=== PATIENT | male | born 1945 | race Caucasian/White ===

== ENCOUNTER 2018-08-28 00:27 | Inpatient (IN) | payer MEDICARE, OTHER ==
--- NOTE | 2018-08-27 12:48 | LEVENE H&P ---
DATE OF ADMISSION: August 28, 2018 IDENTIFICATION/CHIEF COMPLAINT The patient is a 72-year-old gentleman with a chief complaint of left hip pain. HISTORY OF PRESENT ILLNESS The patient has a long-standing history of hip arthritis, progressively painful and debilitating, refractory to conservative care. Surgery is indicated to relieve symptoms after failure of nonoperative measures. PAST MEDICAL HISTORY 1. Hypertension. 2. Easy bruising. 3. Sleep apnea. 4. History of kidney cancer status post right nephrectomy. 5. Diabetes. PAST SURGICAL HISTORY 1. Nephrectomy. 2. Knee replacement on both sides. 3. Some intestinal resection. ALLERGIES No known drug allergies. CURRENT MEDICATIONS 1. Amlodipine 1 p.o. q. day. 2. Crestor 1 p.o. q. day. 3. Allopurinol 300 mg p.o. q. day. 4. Actos 1 p.o. q. day. 5. Aspirin 81 mg p.o. q day. 6. Symbicort once a day as needed for nasal drainage. 7. He uses a CPAP. FAMILY HISTORY Non-contributory. SOCIAL HISTORY Negative for tobacco and alcohol use. REVIEW OF SYSTEMS Negative. PHYSICAL EXAMINATION GENERAL: This is a well-developed, well-nourished male who appears stated age. HEENT: Normocephalic, atraumatic. Extraocular muscles intact. NECK: Supple, non-tender. LUNGS: Clear to auscultation bilaterally. HEART: Regular rate and rhythm. ABDOMEN: Benign. ORTHOPEDIC EXAMINATION Left hip has pain with combine flexion and rotation. He is quite stiff and has loss of internal rotation versus contralateral. Skin is intact. Hip girdle strength is grossly normal. Calf is nontender. Neurovascular intact. RADIOGRAPHS Demonstrate end-stage hip arthritis ASSESSMENT Left hip end-stage degenerative joint disease refractory to conservative care. PLAN Per patient's request, we will proceed with total hip arthroplasty. The nature of the procedure, the risks, benefits, the anticipated rehabilitative course were reviewed. Risks include but are not limited to , major medical or anesthetic complication, infection, neurovascular injury, blood transfusions, stiffness, scarring, fracture, tendon rupture, instability, implant loosening, migration or failure, persistent or recurrent pain or symptoms, need for additional surgery and other unforeseen. He understands and wishes to proceed. All questions are answered. A signed permit is placed in the chart. No guarantees are given or implied. [facility]
--- NOTE | 2018-08-27 15:43 | NUR ---
This Physical Therapist or Avian Keeper was present for the entire physical therapy session directing the services, making the skilled judgement, and was not engaged in treating another patient or doing another task at the same time as the treatment session. Addendum: 08/27/18 at 1544 by BIN IVY PT Amended: Links added.
[2018-08-27 15:47] LABS: INR 1.1
[~2018-08-28] VITALS: Ht 177.8 cm; Wt 129.7 kg
[2018-08-28] VITALS (14 sets, daily range): BP systolic 92–118; BP diastolic 44–92
[~2018-08-28 00:27] MED LIST: ALLO-119 PO; AMLO-106 PO; ASCO-191 PO; ASPI81TA94 PO; CYAN1TAB68 PO; GEMF600T96 PO; GLUC1TAB66 PO; MONT10TA PO; MULT1TAB88 PO; PIOG30TA71 PO; ROSU20TA24 PO
[2018-08-28] MEDS ORDERED: LIDOCAINE/SOD BICARB 8.4% SYR ID ONE (06:15)
[2018-08-28] MEDS ORDERED: FAMOTIDINE 20 MG TAB PO ONE (06:15)
[2018-08-28] MEDS ORDERED: MIDAZOLAM 2 MG/2 ML VIAL IVP PRN (06:15)
[2018-08-28] MEDS ORDERED: ROPIVACAINE/EPI/CLONIDINE/KET 50 ML SYRINGE INJ ONE (06:15)
[2018-08-28] MEDS ORDERED: ACETAMINOPHEN 500 MG TAB PO ONE (06:15)
[2018-08-28] MEDS ORDERED: CELECOXIB 200 MG CAP PO ONE (06:15)
[2018-08-28] MEDS ORDERED: NORMOSOL R SOLN(*) 1000 ML BAG 1,000 ML IV PRN ×2 (06:15→12:20)
[2018-08-28] MEDS ORDERED: PREGABALIN 75 MG CAPSULE PO ONE (06:15)
[2018-08-28] MEDS ORDERED: ceFAZolin(*) 2GM/D5W 50ML 50 ML IVPB ONE (06:15)
[2018-08-28] MEDS ORDERED: TRANEXAMIC AC 1000 MG/10ML SDV 1,000 MG in DEXTROSE 5% 50 ML BAG 50 ML IV ONE (06:15)
[2018-08-28] MEDS ORDERED: VANCOMYCIN 1 GM VIAL ONE (06:49)
[2018-08-28] MEDS ORDERED: ONDANSETRON 4 MG/2 ML VIAL ONE (06:50)
[2018-08-28] MEDS ORDERED: LIDOCAINE MPF 1% 5 ML VIAL ONE (06:50)
[2018-08-28] MEDS ORDERED: DEXAMETHASONE SOD 4 MG/ML VIAL ONE (06:50)
[2018-08-28] MEDS ORDERED: fentaNYL CITR 100 MCG/2 ML AMP ONE ×2 (06:50→10:03)
[2018-08-28] MEDS ORDERED: PROPOFOL EMUL(*) 10MG/ML 20 ML 20 ML ONE (06:50)
[2018-08-28] MEDS ORDERED: KETAMINE HCL-NS 50 MG/5 ML SYR ONE (06:52)
[2018-08-28] MEDS ORDERED: ePHEDrine 25 MG/5 ML DISP.SYR IVP ONE (07:20)
[2018-08-28] MEDS ORDERED: GLYCOPYRROLATE 0.2MG/ML 1 ML INJ ONE (07:20)
[2018-08-28] MEDS ORDERED: LACTATED RINGER 3000 ML BAG IR ONE (07:58)
[2018-08-28] MEDS ORDERED: WATER STERILE FOR IRRIG 1000ML IR ONE (07:59)
[2018-08-28] MEDS ORDERED: NS 0.9% IRRIGATION 1000ML PLCT IR ONE (07:59)
--- NOTE | 2018-08-28 11:34 | Hospitalist Consultation ---
History of Present Illness Requesting Physician Dr. Chatman Reason for Consult Medical Management of comorbidities Chief Complaint s/p left hip replacement History of Present Illness He was admitted s/p left hip replacement. It is reported he had an episode of bradycardia during surgery, which required medication to increase his heart rate. His heart rate has been 60-70 post-operatively and he denies any complaint s now. History Problems: (1) Hypertension Status: Chronic (2) DALLIN (obstructive sleep apnea) Status: Chronic (3) Type 2 diabetes mellitus Status: Chronic (4) Gout Status: Chronic Home Meds Reported Medications Cyanocobalamin/Folic Acid (VITAMIN U59-SNSKM ACID TABLET) 1 Each Tablet, 1 EACH PO QDAY 08/21/18 Multivits-Minerals/Fa/Lycopene (ONE DAILY [employer] TABLET) 1 Each Tablet, 1 TAB PO QDAY 08/21/18 Ascorbic Acid (VITAMIN C) 1,000 Mg Tablet, 1000 MG PO QDAY 08/21/18 Glucosam/Chond/Hyalu/Cf Borate ([employer] Tablet) 750 Mg-100 Mg- 1.65 Mg-108 Mg Tablet, 1500 MG PO QDAY 08/21/18 Aspirin (ASPIRIN) 81 Mg Tab.chew, 81 MG PO QDAY, TAB.CHEW 08/21/18 Montelukast Sodium (SINGULAIR) 10 Mg Tablet, 1 TAB PO QDAY, TAB 08/21/18 Allopurinol (ZYLOPRIM) 300 Mg Tablet, 300 MG PO BID, TAB 08/21/18 Gemfibrozil (GEMFIBROZIL) 600 Mg Tablet, 600 MG PO BID 08/21/18 Amlodipine Besylate/Benazepril (LOTREL 10-40 MG CAPSULE) 1 Each Capsule, 1 EACH PO QDAY, CAPSULE 08/21/18 Pioglitazone Hcl (PIOGLITAZONE HCL) 30 Mg Tablet, 30 MG PO QDAY 08/21/18 Rosuvastatin Calcium (CRESTOR) 20 Mg Tablet, 20 MG PO QDAY 08/21/18 Allergies: Coded Allergies: No Known Drug Allergies (Unverified , 08/21/18) Patient History: FH: colon cancer FATHER FH: stroke FATHER MOTHER Hx Smoking: No Caffeine Intake: Coffee, Soda Caffeine/Cups Per Day: 3-4 CUPS PER DAY Hx Alcohol Use: Yes Hx Substance Use Disorder: No Review of Systems All Systems Reviewed/Normal: Yes, Except as Noted Exam Vital Signs Vital Signs Date Time Temp Pulse Resp B/P (MAP) Pulse Ox O2 Delivery O2 Flow Rate FiO2 08/28/18 10:50 64 16 94 08/28/18 10:50 Nasal Cannula 2.0 08/28/18 10:50 97.0 115/60 (78) General Appearance: Alert, Awake, No Acute Distress, Afebrile Neuro: No Gross deficits Cardiovascular: Regular Rate and Rhythm Respiratory: No Respiratory Distress, Clear to Auscultation GI: Abd Soft and Non-Tender Psych: Alert & Oriented X3, Appropriate Mood & Affect Assessment and Plan Problems: (1) Status post left hip replacement Status: Acute Assessment & Plan: Followed by Dr. Chatman. (2) Hypertension Status: Chronic Assessment & Plan: He is on chronic treatment with Lotrel. He will be started on Amlodipine with hold parameters. (3) Type 2 diabetes mellitus Status: Chronic Assessment & Plan: Continue chronic Pioglitazone. Will place ADA diet, SS insulin #2 and AC/HS blood glucose checks. (4) Gout Status: Chronic Assessment & Plan: Continue chronic allopurinol. (5) DALLIN (obstructive sleep apnea) Status: Chronic Assessment & Plan: He did bring his CPAP to use during admission. Venous Thromboembolism Antithrombotics Is Pt On Any Antithrombotics?: No Problem Qualifiers (1) Hypertension: Hypertension type: essential hypertension Qualified Codes: I10 - Essential (primary) hypertension JANE BOLIVAR [employer] [employer] Aug 28, 2018 11:34
--- NOTE | 2018-08-28 11:41 | RADIOLOGY IMAGING REPORT ---
FACILITY: [facility] [place] PATIENT NAME: Melvin Turk : 1945 MR: [id number] V: [id number] EXAM DATE: ORDERING PHYSICIAN: RAVIN ANTOINE TECHNOLOGIST: [facility] Patient: Melvin Turk : 1945 Visit/Account:[id number] Date of Sevice: 08/28/2018 Study: PELVIS Indication: Status post total hip arthroplasty. Comparison study: January 20, 2016 Findings: AP views of the left hip demonstrates a the patient is status post total left hip arthropla sty. There are postsurgical changes present. The appearance of the metallic portions of the hip pro sthesis is unremarkable. There is no evidence of acute bony abnormality identified. IMPRESSION: Status post left total hip arthroplasty. There is no evidence of acute bony abnormality. Report Dictated By: Pee Laughlin at 08/28/2018 11:33 AM Report E-Signed By: Pee Laughlin at 08/28/2018 11:35 AM WSN:[id number]
--- NOTE | 2018-08-28 12:08 | NUR ---
This Physical Therapist or Registered Account Administrator was present for the entire physical therapy session directing the services, making the skilled judgement, and was not engaged in treating another patient or doing another task at the same time as the treatment session. Addendum: 08/28/18 at 1334 by RITCHIE PEREZ PT Amended: Links added.
--- NOTE | 2018-08-28 12:08 | NUR ---
Physical Therapy Impression PT eval complete. Pt tolerated ambulation well and requested to ambulate despite complaints of pain at 6-7/10. Pt also followed precautions throughout session. PT required Min assist for supine<>sit bed mobility and CGAx1/RW for sit<>stand xfers. Pt ambulated 25 ft from EOB to doorway and back. Pt required CGAx1 and RW for ambulation. Following treatment BP had raised slightly to 107/59 but still asymptomatic. Pt left in bed on room air and call light in reach. Pt would benefit from further skilled PT care to ensure safe ambulation and educate on safe stair negotiation. Rec OP PT at discharge. Physical Therapy Goals 1. Tracie bed mobility 2. Tracie transfers 3. Tracie ambulation of 150 ft with use of least restrictive device 4. Tracie ability to ascend/descend 5 stairs 5. Independent following of all hip precautions. Patient's Goals
[2018-08-28] MEDS ORDERED: DIAZEPAM 5 MG TAB PO PRN (12:20)
[2018-08-28] MEDS ORDERED: PROMETHAZINE 25 MG/ML 1 ML AMP IVP PRN (12:20)
[2018-08-28] MEDS ORDERED: diphenhydrAMINE 25 MG CAP PO PRN (12:20)
[2018-08-28] MEDS ORDERED: BENZOCAINE/MENTHOL 1 EACH LOZG PO PRN (12:20)
[2018-08-28] MEDS ORDERED: diphenhydrAMINE 50 MG/ML VIAL IVP PRN (12:20)
[2018-08-28] MEDS ORDERED: ZOLPIDEM TARTRATE 5 MG TAB PO PRN (12:20)
[2018-08-28] MEDS ORDERED: ACETAMINOPHEN 325 MG TAB PO PRN (12:20)
[2018-08-28] MEDS ORDERED: FLUSH 10 ML SYR IVP PRN (12:20)
[2018-08-28] MEDS ORDERED: MAGNESIUM HYDROXIDE* 30ML UDCP PO PRN (12:20)
[2018-08-28] MEDS ORDERED: BISACODYL 10 MG SUPP PR PRN (12:20)
[2018-08-28] MEDS: APAP/HYDROCODONE 325/7.5 TAB PO PRN ×3 (12:24→23:18)
[2018-08-28] MEDS ORDERED: NS(*) 0.9% 500 ML BAG 500 ML ONE (15:13)
[2018-08-28] MEDS: ceFAZolin(*) 1 GM VIAL 1 GM in NS(*) 0.9% 100 ML MINI-BAG 100 ML IVPB SCH ×2 (15:19→23:16)
[2018-08-28] MEDS: CELECOXIB 200 MG CAP PO SCH (16:19)
[2018-08-28] MEDS: INSULIN HUM LISPRO 100 UN/ML 3 ML VIAL SUBQ PRN ×2 (17:07→21:03)
--- NOTE | 2018-08-28 19:32 | OPERATIVE REPORT 1 ---
EVENT DATE: August 28, 2018 SURGEON: Cristian Chatman MD ANESTHESIOLOGIST: Nino Freitas MD ANESTHESIA: General plus spinal. LEAD SQL DEVELOPER: IRAJ Todd PREOPERATIVE DIAGNOSIS Left hip degenerative joint disease. POSTOPERATIVE DIAGNOSIS Left hip degenerative joint disease. PROCEDURE PERFORMED Left total hip arthroplasty. ESTIMATED BLOOD LOSS 400 mL. DRAINS None. SPECIMENS None. COMPLICATIONS None apparent. IMPLANTS USED Pedro system with a Trident PSL GARZA cluster acetabulum shell 56, zero-degree polyethylene Trident X3 liner to accommodate a 36 mm head. He has Accolade II 132-degree neck angle hip stem size 9 with a V40 LFIT anatomic femoral head, a 36 mm, +10. INDICATIONS Melvin is a 73-year-old gentleman with intractable pain related to left hip end-stage arthritis. Surgery is indicated to relieve symptoms after failure of nonoperative measures. DESCRIPTION OF PROCEDURE Patient is taken to the operating room and placed supine on the operating table. Spinal block is administered by the anesthesiologist. General anesthesia is induced. Antibiotics and TXA are administered IV. Patient is positioned in the right lateral decubitus on a well-padded pegboard. His pelvis is secured in a vertical position. All bony prominences and superficial nerves are well padded. The left hip girdle and lower extremity are prepped and draped free in the usual sterile fashion for hip arthroplasty. A posterolateral approach is made, carried down through the skin and subcutaneous tissue to the deep fascia. Fascia is incised over the tip of the trochanter, extended distally in line with the femur and proximally in line with the shayan fibers. Shayan fibers are split bluntly. The interval between the external rotators and abductors is identified, and the abductor mechanism is protected with a blunt Hohmann. A capsulotomy/tenotomy is performed with an L-shaped flap, starting with the horizontal limb above the piriformis, through the capsule, and dissecting the capsule and external rotators off the back of the femur. These are tagged with #2 Vicryl for later anatomic reattachment. A 1.5 cm neck cut is marked, and the appropriate cut is made with an oscillating saw. The femoral head is extracted. The femur is translocated anteriorly, and lynn-acetabular retractors are placed with the tips down on bone. The pulvinar and labrum are excised. A 44 mm reamer is used to medialize through the true medial wall of the acetabulum. This is expanded in 2 mm increments up to 56 where nice rim contact is obtained. Trial 56 has nice fit. A 57 is used to open the throat of the acetabulum to accommodate the raised rim liner. Surfaces are lavaged. The actual shell is impacted in approximately 40 degrees of lateral opening and 20 degrees of anteversion using the transverse acetabular ligament, extracorporeal guide, and internal bony landmarks to guide socket placement. Rock-solid fixation is achieved. No adjuvant fixation felt to be needed. Shell is lavaged, and the actual liner is locked into the shell. Attention is turned to femoral preparation. The superior neck is resected with a [email or web address] cutter. A Charey awl finds the canal. Tapered broaching is performed up to 9 where nice fit, fill, and stability are achievable. Trial reduction is performed off this broach. Good lutheran of soft tissue tension and stability are achievable with the longer neck lengths. The broach is extracted. Surfaces are copiously lavaged. The actual stem is then seated and seats at roughly the same height. Trial reduction with various neck lengths is performed. The +10 is required to achieve adequate soft tissue tension to prevent instability due to a fairly stiff spine. This does lengthen the patient's limb an estimated 1/4 to 1/2 inch, but it is felt to be a good trade off rather than compromising stability. The wound is copiously lavaged, and the Olmedo taper is dried. The actual head is impacted onto the Olmedo taper. Joint is reduced. Drill holes are created in the posterior femur to reattach the capsule and external rotators, followed by deep fascial closure with #2 Ethibond distally and #2 Vicryl proximally. Subcutaneous tissue is lavaged. Hemostasis is assured. Derm is closed with 3-0 Vicryl and skin with Prineo/Monocryl combination. A dry, sterile dressing and a hip wrap are applied. Patient is awakened from anesthesia and taken to the recovery room in stable condition having tolerated the procedure well. PLAN Standard PRAMOD rehab protocol. Weightbearing as tolerated. Posterior hip precautions. MTDD
[2018-08-28] MEDS: GEMFIBROZIL 600 MG TAB PO SCH (21:03)
[2018-08-29 04:31] VITALS: BP 94/63
[2018-08-29] MEDS: ceFAZolin(*) 1 GM VIAL 1 GM in NS(*) 0.9% 100 ML MINI-BAG 100 ML IVPB SCH (06:22)
[2018-08-29 07:01] VITALS: BP 95/55
[2018-08-29] MEDS ORDERED: ASPI-757 PO (08:06)
[2018-08-29 08:40] VITALS: Ht 177.8 cm; Wt 129.7 kg
[2018-08-29] MEDS: CELECOXIB 200 MG CAP PO SCH (08:53)
[2018-08-29] MEDS: GEMFIBROZIL 600 MG TAB PO SCH (08:53)
[2018-08-29] MEDS ORDERED: ASPIRIN 325 MG TAB PO SCH (09:00)
[2018-08-29] MEDS ORDERED: amLODIPine BESYL(*) 5 MG TAB PO SCH (09:00)
[2018-08-29] MEDS ORDERED: PIOGLITAZONE HCL 15 MG TAB PO SCH (09:00)
[2018-08-29] MEDS ORDERED: ROSUVASTATIN CALCIUM 10 MG TAB PO SCH (09:00)
[2018-08-29] MEDS ORDERED: MONTELUKAST SODIUM 10 MG TAB PO SCH (09:00)
[2018-08-29] MEDS: APAP/HYDROCODONE 325/7.5 TAB PO PRN (09:07)
[2018-08-29 10:18] VITALS: BP 100/57
--- NOTE | 2018-08-29 10:31 | Hospitalist Progress Note ---
Subjective Progress Notes Subjective He was admitted s/p hip replacement. He had no acute events overnight. His heart rate maintained in the 50's overnight. He is asymptomatic. Patient Complains of: Cardiovascular: No: Chest Pain Respiratory: No: Shortness of Breath Physical Exam Vital Signs Date Time Temp Pulse Resp B/P (MAP) Pulse Ox O2 Delivery O2 Flow Rate FiO2 08/29/18 10:18 97.7 57 20 100/57 (71) 91 Nasal Cannula 1.0 Intake and Output 08/29/18 07:01 Intake Total 2060 ml Balance 2060 ml Intake Oral 310 ml IV Total 1750 ml # Voids 2 General Appearance: Alert, Awake, No Acute Distress, Afebrile Neuro: No Gross deficits Cardiovascular: Other (bradycardia noted) Respiratory: No Respiratory Distress, Clear to Auscultation Psych: Alert & Oriented X3, Appropriate Mood & Affect Assessment and Plan Problems: (1) Status post left hip replacement Status: Acute Assessment & Plan: Followed by Dr. Chatman. He was placed on Aspirin for DVT prophylaxis. (2) Hypertension Status: Chronic Assessment & Plan: He is on chronic treatment with Lotrel. He will be started on Amlodipine with hold parameters. He will hold his medications at home for three days, then resume. If he feels dizzy, he will follow up with his PCP immediately. (3) Type 2 diabetes mellitus Status: Chronic Assessment & Plan: Continue chronic Pioglitazone. Will place ADA diet, SS insulin #2 and AC/HS blood glucose checks. (4) Gout Status: Chronic Assessment & Plan: Continue chronic allopurinol. (5) DALLIN (obstructive sleep apnea) Status: Chronic Assessment & Plan: He did bring his CPAP to use during admission. Exam Sepsis Risk: No Definite Risk Problem Qualifiers (1) Hypertension: Hypertension type: essential hypertension Qualified Codes: I10 - Essential (primary) hypertension JANE BOLIVAR [facility] Aug 29, 2018 10:31
--- NOTE | 2018-08-29 13:31 | NUR ---
This Physical Therapist or Engineering Agent was present for the entire physical therapy session directing the services, making the skilled judgement, and was not engaged in treating another patient or doing another task at the same time as the treatment session. Addendum: 08/29/18 at 1331 by BIN IVY PT Amended: Links added.
--- NOTE | 2018-08-29 13:31 | NUR ---
Physical Therapy Impression Pt tolerating ambulation well and demonstrated safe stair negotiation. Pt could not recall hip precautions, but adhered to them throughout session. Pt performed sit<>supine bed mobility with SBA. Pt maintained hip precautions throughout. Pt performed sit<>stand xfers while using axillary crutches. SBA provided to ensure precautions maintained and to ensure safety with first time utilizing the crutches. Pt ambulated 215 ft with use of axillary crutches and SBA. Pt tolerated ambulation well, reporting preferance of axillary crutches over the RW. He reported pain of a 4/10 during ambulation. SpO2 maintained >90%, and HR at 55. Pt asymptomatic of low HR and it was near baseline. Pt ascended/descended 1 stair with SBA and use of left railing/crutches. Cues provided on foot sequencing and AD use, Pt states understanding. Therex not performed but therex handout reviewed, Pt states understanding.Pt left in bed with all needs met and call light in reach. Pt near all PT goals and safe to discharge when medically appropriate. Rec OP PT at [facility]. Physical Therapy Goals 1. Tracie bed mobility 2. Tracie transfers 3. Tracie ambulation of 150 ft with use of least restrictive device 4. Tracie ability to ascend/descend 5 stairs 5. Independent following of all hip precautions. Patient's Goals
== END 2018-08-29 12:11 | disposition home or self-care (01) | DRG 470 ==
LOC: OR 00:27 → MED 10:50
PROVIDERS: ADMIT Orthopaedic Surgery; ATTEND Orthopaedic Surgery
PROC: 0SRB04A Replacement of Left Hip Joint with Ceramic on Polyethylene Synthetic Substitute, Uncemented, Open Approach (ICD-10-PCS; principal; 2018-08-28 07:06)
DX: M16.12 Unilateral primary osteoarthritis, left hip (principal); I10 Essential (primary) hypertension; E11.9 Type 2 diabetes mellitus without complications; R00.1 Bradycardia, unspecified; G47.33 Obstructive sleep apnea (adult) (pediatric); M10.9 Gout, unspecified; Z85.528 Personal history of other malignant neoplasm of kidney; Z90.5 Acquired absence of kidney; Z79.82 Long term (current) use of aspirin; Z79.51 Long term (current) use of inhaled steroids; Z79.899 Other long term (current) drug therapy; Z99.89 Dependence on other enabling machines and devices
CPT/HCPCS: 36415; 36416; 72170; 82948; 85610; 86850; 86900; 86901; 97165; C1776; J0690; J1100; J2001; J2250; J2405; J2704; J3010; J3370; J3490; J7060